=== PATIENT | female | born 1995 | race Caucasian/White ===

== ENCOUNTER 2018-03-04 13:49 | Inpatient (IN) ==
--- OUTSIDE RECORDS SUMMARY | 2018-03-04 16:57 | External Medical Summary | Continuity of Care Document ---
:1995 Author Organization [facility] Address [address] [place], [place] [id number] Phone Care Team Providers Name Role Phone Jose L Hardy MD, FAAFP Unavailable Unavailable Allergies, Adverse Reactions, Alerts Substance Reaction Severity Status No Known Drug Allergies Unknown Active Medications Medication Instructions Dosage Effective Dates Status Comments (start - stop) 28 mg take 1 tablet by Not Available - Active iron-800 mcg oral route every tablet day Problems Condition Effective Dates (start - stop) Clinical Status Encntr for suprvsn of normal first - preg, third trimester 34 weeks gestation of - Right upper quadrant pain Secondary amenorrhea Palpitations - Encntr for suprvsn of normal first - preg, second trimester 24 weeks gestation of - Right upper quadrant pain - Right upper quadrant pain Headache Syncope and collapse - 19 weeks gestation of - Decreased libido Encntr screen for infections w sexl - mode of transmiss Encounter for screening for oth - infec/parastc diseases Encntr for suprvsn of normal first - preg, first trimester Encounter for screening of - mother 9 weeks gestation of - Encntr for suprvsn of normal first - preg, second trimester 14 weeks gestation of - Encntr for suprvsn of normal first - preg, second trimester 17 weeks gestation of - Encntr for suprvsn of normal first - preg, second trimester 20 weeks gestation of - Encntr for suprvsn of normal first - preg, third trimester 32 weeks gestation of - Encntr for suprvsn of normal first - preg, third trimester 30 weeks gestation of - Encntr for suprvsn of normal first - preg, third trimester 28 weeks gestation of - Encntr for suprvsn of normal first - preg, third trimester Encounter For Screening For - Streptococcus B 36 weeks gestation of - Encntr for suprvsn of normal first - preg, third trimester 37 weeks gestation of - Encounter For Screening For - Malformations 20 weeks gestation of - Urinary Frequency - Active Dysuria - Active Abdominal Pain, RLQ - Active Pelvic Pain - Active Ovarian Cyst - Active Procedures Procedure Date OB Visit No Charge Results Test Name Date and Time Measure Units Reference Range Abnormal Flag Comments Unknown Advance Directives Directive Yes / No Effective Date File Name Unknown Encounters Encounter Practice Location Reason(s) Diagnoses Date Provider Care Team Description For Visit Members Mitchell Chiur for Chandra Referring In Womens suprvsn of normal 0-201 [place]. 700 Provider: Health PA, first preg, third 8 Medical [place] [address] [id number] weeks Center Chandra R, 1522, gestation of [place] 700 [place], 120, Medical [email or web address] [id number], ERAN, [facility] [place] 120, [place] [id number] [place], tel: , [place]. [place], [id number] tel: [phone]. [id number] tel:[phone] Mitchell Chiur for Ricardo-0 Chandra Referring In Womens suprvsn of normal 3-201 [place]. 700 Provider: Health SON, first preg, third 8 Medical [place] PO Box trimesterEncounte Center Chandra R, 1522, r For [place] Cha, Screening For 120, Medical [place], [facility] B36 [facility] [id number], weeks gestation [place], [place] 120, [place] of [id number] [place], tel: , [place]. [place], tel: [phone]. [id number] tel:[phone] Mitchell Vigil Encntr for Ricardo-2 Chandra Referring In Womens suprvsn of normal 0-201 [place]. 700 Provider: Health SON, first preg, third 8 Medical [place] [address] [id number] weeks Center Chandra R, 1522, gestation of [place], 120, Medical [place] [facility] [id number], [place], [place] 120, [place] [id number] [place], tel: , [place]. [place], tel: [phone]. [id number] tel:[phone] Mitchell Vigil Encntr for Ricardo-0 Chandra Referring In Womens suprvsn of normal 6-201 [place]. 700 Provider: Health SON, first preg, third 8 Medical [place] [address] [email or web address] weeks Center Chandra R, 1522, gestation of [place], 120, Medical [place] [facility] [id number], [place], [place] 120, [place] [id number] [place], tel: , [place], tel: [phone]. [id number] tel:[phone] Mitchell Vigil Encntr for May-2 Chandra Referring In Womens suprvsn of normal 3-201 [place]. 700 Provider: Health SON, first preg, third 8 Medical [place] PO Box [id number] weeks Center Chandra R, 1522, gestation of [place], 120, Medical [place] [facility] [id number], [place], [place] 120, [place] [id number] [place], tel: , [place]. [place], tel: [phone]. [id number] tel:[phone] Mitchell Vigil Encntr for May-0 Chandra Referring In Womens suprvsn of normal 9-201 [place]. 700 Provider: Health SON, first preg, third 8 Medical [place] PO Box [email or web address] weeks Center Chandra R, 1522, gestation of DrLevy [place], 120, Medical [place], [facility] [id number], [place], [place] 120, [place] [id number] [place], tel: , [place]. [place] tel: [phone]. [id number] tel:[phone] Mitchell Vigil PalpitationsEncnt Apr-1 Chandra Referring In Womens r for suprvsn of 1-201 [place]. 700 Provider: Elvis CLINE, normal first 8 Medical [place] PO Box preg, second Center Chandra R, 1522, [email or web address] weeks [place], gestation of 120, Medical [place], [place], [place] [id number], [place], [place] 120, [place] [id number] [place], tel: , [place]. [place], tel: [phone]. [id number] tel:[phone] Mitchell Vigil Encntr for Mar-1 Chandra Referring In Womens suprvsn of normal 4-201 [place]. 700 Provider: Elvis CLINE, first preg, 8 Medical [place] PO Box second Center Chandra R, 1522, [email or web address] weeks [place], gestation of 120, Medical [place], [place], [place] [id number], [place], [place] 120, [place] [id number] [place], tel: , [place]. [place], tel: [phone]. [id number] tel:[phone] Mitchell Vigil Encounter For Mar-1 Chandra Referring In Womens Ultrasound 4-201 [place]. 700 Provider: Elvis CLINE, Screening For 8 Medical [place] [address] [id number] Center Chandra R, 1522, weeks gestation [place] Cha, of 120, Medical [place], [place], [place] [id number], [place], [place] 120, [place] [id number] [place], tel: , [place]. [place] tel: [phone]. [id number] tel:[phone] Mitchell Vigil Syncope and Mar-0 Chandra Referring In Womens [id number] weeks 6-201 [place]. 700 Provider: Health [place], gestation of 8 [facility] Center Chandar R, 1522, [place], 120, Medical [place], [facility] [id number], [place], [place] 120, [place] [id number] [place], tel: , [place]. [place] tel: [phone]. [id number] tel:[phone] Mitchell Vigil Encntr for Feb-2 Chandra Referring In Womens suprvsn of normal 3-201 [place]. 700 Provider: Health [place], first preg, 8 [facility] second Center Chandra R, 1522, [email or web address] weeks [place], gestation of 120, Medical [place], [facility] [id number], [place], [place], [place] [id number] [place], tel: , [place]. [place] tel: [phone]. [id number] tel:[phone] Mitchell Vigil Encntr for Feb-0 Chandra Referring In Womens suprvsn of normal 2-201 [place]. 700 Provider: Health [place], first preg, 8 [facility] second Center Chandra R, 1522, [id number] weeks [place], gestation of 120, Medical [place], [facility] [id number], [place], [place], [place] [id number] [place], tel: , [place]. [place] tel: [phone]. [id number] tel:[phone] Mitchell Vigil Encntr screen for Lefty-0 Chandra Referring In Womens infections w sexl 4-201 [place]. 700 Provider: Health [place], mode of 8 [facility] transmissEncounte [place] Chandra R, 1522, r for screening [place], for oth 120, Medical [place], [facility]astc [facility] [id number], diseasesEncntr [place], [place] 120, [place] for suprvsn of [id number] [place], tel: normal first , [place]. [place] preg, first tel: [phone]. trimesterEncounte [id number] tel: r for [phone] screening of mother9 weeks gestation of Associates [place] Secondary Dec-1 Chandra Referring In Womens amenorrhea 5-201 [place]. 700 Provider: Elvis CLINE, 7 [facility] Chandra Cintron, 1522, , [place] [address], 120, Medical [place] [facility] [id number], [place], [facility], [place] 120, [place] [id number] [place], tel: , [place]. [place], tel:[phone]. [id number] tel:[phone] Associates [place] Right upper Nov-2 Chandra Referring In Womens quadrant pain 7-201 [place]. 700 Provider: Elvis CLINE, 7 [facility] Chandra Cintron, 1522, , [place] [address], 120, Medical [place] [facility] [id number], [place], [facility], [place] 120, [place] [id number] [place], tel: , [place]. [place], tel:[phone]. [id number] tel:[phone] [facility] [place] Right upper Nov-2 Chandra In Womens quadrant pain 3-201 [place]. 700 Elvis CLINE, 7 [facility] 1522, [place], [facility], [place] [id number], [place], [id number] tel: , [place]. tel: [phone] [facility] [place] Right upper Nov-2 Chandra Referring In Womens quadrant pain 2-201 [place]. 700 Provider: Elvis CLINE, 7 [facility] Chandra R, 1522, , [place] [address], 120, Medical [place] [facility] [id number], [place], [place] 120, [place] [id number] [place], tel: , [place]. [place], tel: [phone]. [id number] tel:[phone] [facility] Headache Apr-1 Chandra Referring In Womens 9-201 [place]. 700 Provider: Elvis CLINE, 6 [facility] Chandra Cintron, 1522, , [place] [address], 120, Medical [place] [facility] [id number], [place], [facility], [place] 120, [place] [id number] [place], tel: , [place]. [place], tel: [phone]. [id number] tel:[phone] [facility] Decreased libido Chandra Referring In Womens 9-201 [place]. 700 Provider: Health PA, 6 Medical [place] [address] [place] Chandra , 1522, , [place] [address] [place], [facility], [facility], [facility] [id number], [place], [facility], [place] 120, [place] [id number] [place], tel: , [place]. [place], tel: [phone]. [id number] tel:[phone] Mitchell Vigil Feb- Lisa In Womens 0-200 Katheryn. Health [place], 9 700 [address] Box [facility] [address], [place] [address] Marry, [facility], 120, [id number], Vigil, ERAN, tel: [phone] , . tel: [phone] Family History Family Member Diagnosis Age At Onset No family history of Diabetes No family history of Colon Cancer No family history of Breast Cancer No family history of Osteoporosis No family history of Cardiovascular Disease No family history of Thyroid Disorder Maternal Grandfather Hypertension No family history of Stroke No family history of Kidney Problems Maternal Grandmother Hypertension No family history of Lung Disease No family history of Epilepsy Immunizations Vaccine Date Status Comments Tdap completed Source: New Immunization Record Payers Payer name Insurance type Covered constitution party ID Authorization(s) [facility] [id number] [employer] CI [id number] [employer] CI [id number] Social History Type Description Quantity Date Captured Alcohol Use Details No Caffeine Use Details Unknown Tobacco Use Status Unknown Smoking Status Never smoker Vital Signs Date / Height Weight BMI Pulse Blood Temperature Respiratory Body Head BMI Time: Rate Pressure Rate Surface Circumference percentile Area 218.90 32.3 126/69 -2018 lbs 2 mm[Hg] 1:30 kg/m PM eter (2) Chief Complaint And Reason For Visit Unknown Chief Complaint And Reason For Visit Reason For Referral Reason For Referral Unknown Plan Of Care Date Type Action Status Appointment Niki Berman BOOKED Appointment Niki Berman BOOKED Future Order: Radiology Order Complete OB Ultrasound > 14 Weeks Ordered ([id number]) Date Type Problem Goal Intervention Status Start Date Unknown. History Of Present Illness Encounter Date Complaint History Of Present Illness This patient has no known history of present illness Functional Status Encounter Date Functional Assessment Cognitive Assessment Unknown Medications Administered Medication Instructions Dosage Effective Dates (start - stop) Status Comments Drug Treatment Unknown Instructions Date Instruction Additional Information HIV and other routine tests risk factors identified by history anticipated course of care nutrition and weight gain counseling, special diet toxoplasmosis precautions (cats / raw meat) sexual activity exercise indications for ultrasound influenza vaccine environmental / work hazards travel use of any medications (including supplements, vitamins, herbs, OTC drugs) domestic violence seat belt use childbirth classes / hospital facilities hospital registration genetic testing risks
--- OUTSIDE RECORDS SUMMARY | 2018-03-04 16:57 | External Medical Summary | Continuity of Care Document ---
:1995 Author Organization [facility] Address [address] [place], [place] [id number] Phone Care Team Providers Name Role Phone [...] Effective Dates (start - stop) Clinical Status Right upper quadrant pain Secondary amenorrhea Palpitations [...] second trimester 20 weeks gestation of - Encounter For Screening For - Malformations 20 weeks gestation of - Urinary Frequency - Active Dysuria - Active Abdominal Pain, RLQ - Active Pelvic Pain - Active Ovarian Cyst - Active Procedures Procedure Date Unknown Results Test Name Date and Time Measure Units Reference Range Abnormal Flag Comments Unknown Advance Directives Directive Yes / No Effective Date File Name Unknown Encounters Encounter Practice Location Reason(s) Diagnoses Date Provider Care Team Description For Visit Members Mitchell Vigil PalpitationsEncnt Apr-1 Chandra Referring In Womens r for suprvsn of 1-201 [place]. 700 Provider: Elvis CLINE, normal first 8 Medical [place] PO Box preg, second Center Chandra R, 1522, [email or web address] weeks [place], gestation of 120, Medical [place], [facility] [place], [facility] 120, [place] [id number] [place], tel:+ , [place]. [place], tel: [phone]. [id number] tel:[phone] Mitchell Vigil Apr-1 Chandra In Womens 0-201 [place]. 700 Elvis CLINE, 8 Medical PO Box Center 1522, [place], [facility], [place], [place], [id number], [place], [place] [id number] tel: , [place]. tel: [phone] Mitchell Vigil Encntr for Mar-1 Chandra Referring In Womens suprvsn of normal 4-201 [place]. 700 Provider: Elvis CLINE, first preg, 8 Medical [place] PO Box second Center Chandra R, 1522, [id number] weeks [place], gestation of 120, Medical [place], [place] Sieper [id number], [place], [facility] 120, [place] [id number] [place], tel:[phone] , . [place], tel: [phone]. [id number] tel:[phone] Mitchell Vigil Encounter For Mar-1 Chandra Referring In Womens Ultrasound 4-201 [place]. 700 Provider: Elvis CLINE, Screening For 8 Medical [place] [address] Box [id number] Center Chandra R, 1522, weeks gestation [place], of 120, Medical [facility] [id number], [place], [place] 120, [place] [id number] [place], tel: , [place]. [place], tel: [phone]. [id number] tel:[phone] Mitchell Vigil Syncope and Mar-0 Chandra Referring In Womens [id number] weeks 6-201 [place]. 700 Provider: Elvis CLINE, gestation of 8 Medical [place] PO Box Center Chandra R, 1522, [place], 120, Medical [place] [facility] [id number], [place], [place] 120, [place] [id number] [place], tel: , [place]. [place], tel: [phone]. [id number] tel:[phone] Mitchell Vigil Encntr for Feb-2 Chandra Referring In Womens suprvsn of normal 3-201 [place]. 700 Provider: Elvis CLINE, first preg, 8 Medical [place] PO Box second Center Chandra R, 1522, weeks [place], gestation of 120, Medical [place], [facility] [id number], [place], [place] 120, [place] [id number] [place], tel: , [place]. [place], tel: [phone]. [id number] tel:[phone] Mitchell Vigil Encntr for Feb-0 Chandra Referring In Womens suprvsn of normal 2-201 [place]. 700 Provider: Elvis CLINE, first preg, 8 Medical [facility] Box second Center Chandra R, 1522, [id number] weeks [place], gestation of 120, Medical [place], [facility] [id number], [place], [place] 120, [place] [id number] [place], tel: , [place]. [place], tel: [phone]. [id number] tel:[phone] Mitchell Vigil Encntr screen for Lefty-0 Chandra Referring In Womens infections w sexl 4-201 [place]. 700 Provider: Elvis CLINE, mode of 8 Medical [facility] Box transmissEncounte Center Chandra R, 1522, r for screening [place], for oth 120, Medical [place], [facility]c [facility] [id number], diseasesEncntr [place], [facility] 120, [place] for suprvsn of [id number] [place], tel: normal first , [place]. [place], preg, first tel: [phone]. trimesterEncounte [id number] tel: r for [phone] screening of mother9 weeks gestation of Associates [place] Secondary Chandra Referring In Womens amenorrhea 5-201 [place]. 700 Provider: Health SON, 7 [facility] Chandra Cintron, 1522, [place], 120, Medical [place] [facility] [id number], [place], [facility] 120, [place] [id number] [place], tel: , [place]. [place], tel: [phone]. [id number] tel:[phone] Mitchell Vigil Right upper Nov-2 Chandra Referring In Womens quadrant pain 7-201 [place]. 700 Provider: Health SON, 7 [facility] Chandra Cintron, 1522, [place], 120, Medical [place] [facility] [id number], [place], [facility] 120, [place] [id number] [place], tel: , [place]. [place], tel: [phone]. [id number] tel:[phone] Mitchell Vigil Right upper Nov-2 Chandra In Womens quadrant pain 3-201 [place]. 700 Elvis CLINE, 7 [facility] 1522, [place], 120, [place] [id number], [place], [place] [id number] tel: , [place]. tel: [phone] Mitchell Vigil Right upper Nov-2 Chandra Referring In Womens quadrant pain 2-201 [place]. 700 Provider: Health SON, 7 [facility] Chandra R, 1522, [place], 120, Medical [place] [facility] [id number], [place], [place] 120, [place] [id number] [place], tel: , [place]. [place], tel: [phone]. [id number] tel:[phone] Mitchell Vigil Headache Nov- Chandra Referring In Womens 9-201 [place]. 700 Provider: Health PA, 6 [facility] Box Center Candy Guevara, , [facility] 700 [place], 120, Medical ERAN [facility] [id number], [place], [facility] 120, [id number] [place], tel: , . [place], tel: [phone]. [id number] tel:[phone] Mitchell Vigil Decreased libido Feb-0 Chandra Referring In Womens 9-201 [place]. 700 Provider: Health SON, 6 [facility] Cristobal Guevara2Dr, [facility] 700 [place], 120, Medical [facility] [id number], [place], [facility] 120, [id number] [place], tel: , . [place], tel: [phone]. [id number] tel:[phone] Mitchell Vigil Ricardo-2 Lisa In Womens 0-200 Katheryn. Health SON, 9 700 [facility] 1522, [address], [facility], [facility], [id number], [facility] ERAN, tel: [phone] , . tel: [phone] Family History Family Member Diagnosis Age At [...] of Epilepsy Immunizations Vaccine Date Status Comments Unknown Payers Payer name Insurance type Covered alliance party ID Authorization(s) [address] [id number] Social History Type Description Quantity Date Captured Unknown Vital Signs Date / Height Weight BMI Pulse Blood Temperature Respiratory Body Head BMI Time: Rate Pressure Rate Surface Circumference percentile Area Unknown Chief Complaint And Reason For Visit Unknown Chief Complaint And Reason For Visit Reason For Referral Reason For Referral Unknown Plan Of Care Date Type Action Status Appointment Niki Berman BOOKED Future Order: Radiology Order Complete OB Ultrasound > 14 Weeks Ordered ([id number]) Date Type Problem Goal Intervention Status Start [...]
--- OUTSIDE RECORDS SUMMARY | 2018-03-04 16:57 | External Medical Summary | Continuity of Care Document ---
:1995 Author Organization [facility] [facility] Address [address] [place], [place] [id number] Phone Care Team Providers Name Role Phone [...] Streptococcus B 36 weeks gestation of - Right upper quadrant [...] of normal first - preg, third trimester 38 weeks gestation of - Encntr for suprvsn of normal first - preg, third trimester 30 weeks gestation of - Encntr for suprvsn of normal first - preg, third trimester 28 weeks gestation of - Encntr for suprvsn of normal first - preg, third trimester 34 weeks gestation of - Encntr for suprvsn of normal first - preg, third trimester 37 weeks gestation of - Encounter For Screening For - Malformations 20 weeks gestation of - Urinary Frequency - Active Dysuria - Active Abdominal Pain, RLQ - Active Pelvic Pain - Active Ovarian Cyst - Active Procedures Procedure Date OB Visit No Charge Cult, pathgnc orgnsm, screen Results Test Name Date and Time Measure Units Reference Range Abnormal Flag Comments Panel Description: Strep Gp B Culture Strep Gp B Negative Negative Centers for Disease Control Culture 10:40:00 and Prevention (CDC) and [place] Congressof Obstetricians and Gynecologists (ACOG) guidelines for prevention ofperinatal group B streptococcal (GBS) disease specify co-collection ofa vaginal and rectal swab specimen to maximize sensitivity of GBSdetection. Per the CDC and ACOG, swabbing both the lower vagina andrectum substantially increases the yield of detection compared withsampling the vagina alone. .Penicillin G, ampicillin, or cefazolin are indicated for intrapartumprophylaxis of GBS colonization. Reflex susceptibilitytesting should be performed prior to use of clindamycin only on GBSisolates from penicillin-allergic women who are considered a high riskfor anaphylaxis. Treatment with vancomycin without additional testingis warranted if resistance to clindamycin is noted. Advance Directives Directive Yes / No Effective Date File Name Unknown Encounters Encounter Practice Location Reason(s) Diagnoses Date Provider Care Team Description For Visit Members Mitchell Vigil Encntr for Ricardo-1 Chandra Referring In Womens suprvsn of normal 7-201 [place]. 700 Provider: Health [place], first preg, third 8 Medical [place] [address] [email or web address] weeks [place] Chandra R, 1522, gestation of [place], 120, [facility] [id number], [place], [facility] 120, [place] [id number] [place], tel:+ , [place]. [place], tel: [phone]. [id number] tel:[phone] Mitchell Vigil Encntr for Ricardo-1 Chandra Referring In Womens suprn of normal 0-201 [place]. 700 Provider: Health [place], first preg, third 8 Medical [place] [address] [email or web address] weeks Center Chandra R, 1522, gestation of [place], 120, [facility] [place] [facility] [id number], [place], [facility] 120, [place] [id number] [place], tel: , [place]. [place], tel: [phone]. [id number] tel:[phone] Mitchell Vigil Encntr for Ricardo-0 Chandra Referring In Womens suprvsn of normal 3-201 [place]. 700 Provider: Health OR, first preg, third 8 Medical [place] PO Box trimesterEncounte Center Chandra R, 1522, r For [place], Screening For 120, Medical [place], Streptococcus B36 [place] [id number], weeks gestation ERAN, [facility] 120, [place] of [id number] [place], tel: , [place]. [place], tel: [phone]. [id number] tel:[phone] Mitchell Vigil Encntr for Ricardo-2 Chandra Referring In Womens suprvsn of normal 0-201 [place]. 700 Provider: Health [place], first preg, third 8 Medical [place] PO Box weeks Center Chandra Cintron, 1522, gestation of [place], 120, Medical [place] [facility] [id number], [place], [facility] 120, [place] [id number] [place], tel:+ , [place]. [place], tel: [phone]. [id number] tel:[phone] Mitchell Vigil Encntr for Ricardo-0 Chandra Referring In Womens suprvsn of normal 6-201 [place]. 700 Provider: Health [place], first preg, third 8 Medical [place] PO Box [email or web address] weeks Center Chandra Cintron, 1522, gestation of [place], 120, Medical [place] [facility] [id number], [place], [facility] 120, [place] [id number] [place], tel:+ , [place]. [place], tel: [phone]. [id number] tel:[phone] Mitchell Vigil Encntr for May-2 Chandra Referring In Womens suprvsn of normal 3-201 [place]. 700 Provider: Health SON, first preg, third 8 Medical [place] PO Box [email or web address] weeks Center Chandra Cintron, 1522, gestation of [place], 120, Medical [place] [facility] [id number], [place], [facility] 120, [place] [id number] [place], tel:+ , [place]. [place], tel: [phone]. [id number] tel:[phone] Mitchell Vigil Encntr for May-0 Chandra Referring In Womens suprvsn of normal 9-201 [place]. 700 Provider: Health [place], first preg, third 8 Medical [place] PO Box [email or web address] weeks Center Chandra Cintron, 1522, gestation of [place], 120, Medical [place] [facility] [id number], [place], [facility] 120, [place] [id number] [place], tel:+ , [place]. [place] tel: [phone]. [id number] tel:[phone] Mitchell Vigil PalpitationsEncnt Apr-1 Chandra Referring In Womens r for suprvsn of 1-201 [place]. 700 Provider: Health SON, normal first 8 Medical [place] PO Box preg, second Center Chandra R, 1522, weeks [place], gestation of 120, Medical [place], Vigil, [place] [id number], [place], [place] 120, [place] [id number] [place], tel:+ , [place]. [place], tel: [phone]. [id number] tel:[phone] Mitchell Vigil Encntr for Mar-1 Chandra Referring In Womens suprvsn of normal 4-201 [place]. 700 Provider: Health SON, first preg, 8 Medical [place] PO Box second Center Chandra R, 1522, weeks [place], gestation of 120, Medical [place], [place], [place] [id number], [place], [place] 120, [place] [id number] [place], tel: , [place]. [place], tel: [phone]. [id number] tel:[phone] Mitchell Vigil Encounter For Mar-1 Chandra Referring In Womens Ultrasound 4-201 [place]. 700 Provider: Health SON, Screening For 8 Medical [place] PO Box [id number] Center Chandra R, 1522, weeks gestation [place], of 120, Medical [place] [facility] [id number], [place], [place] 120, [place] [id number] [place], tel:+ , [place]. [place] tel: [phone]. [id number] tel:[phone] Mitchell Vigil Syncope and Mar-0 Chandra Referring In Womens [email or web address] weeks 6-201 [place]. 700 Provider: Elvis CLINE, gestation of 8 Medical [place] PO Box Center Chandra R, 1522, [place], 120, Medical [place] BARILLAS, [place] [id number], [place], [place] 120, [place] [id number] [place], tel: , [place]. [place] tel: [phone]. [id number] tel:[phone] Mitchell Vigil Encntr for Feb-2 Chandra Referring In Womens suprvsn of normal 3-201 [place]. 700 Provider: Elvis SON, first preg, 8 Medical [facility] Center Chandra R, 1522, [email or web address] weeks [place], gestation of 120, Medical [place], [place], [place] [id number], [place], [place] 120, [place] [id number] [place], tel:+ , [place]. [place], tel: [phone]. [id number] tel:[phone] Mitchell Vigil Encntr for Feb-0 Chandra Referring In Womens suprvsn of normal 2-201 [place]. 700 Provider: Health SON, first preg, 8 [facility] Center Chandra R, 1522, [email or web address] weeks [place], gestation of 120, Medical [place], [facility] [id number], [place], [place] 120, [place] [id number] [place], tel:+ , [place]. [place], tel: [phone]. [id number] tel:[phone] Mitchell Vigil Encntr screen for Lefty-0 Chandra Referring In Womens infections w sexl 4-201 [place]. 700 Provider: Elvis CLINE, mode of 8 [facility] transmissEncounte [place] Chandra R, 1522, r for screening [place], for oth 120, Medical [place], [facility] [id number], diseasesEncntr [place], [place] 120, [place] for suprvsn of [id number] [place], tel: normal first , [place]. [place], preg, first tel: [phone]. trimesterEncounte [id number] tel:[phone] r for [id number] screening of mother9 weeks gestation of Mitchell Vigil Secondary Dec-1 Chandra Referring In Womens amenorrhea 5-201 [place]. 700 Provider: Elvis CLINE, 7 [facility] Chandra R, 1522, [place], 120, Medical [place], [facility] [id number], [place], [place] 120, [place] [id number] [place], tel: , [place]. [place] tel: [phone]. [id number] tel:[phone] Mitchell Vigil Right upper Nov-2 Chandra Referring In Womens quadrant pain 7- [place]. 700 Provider: Health SON, 7 [facility] Chandra Cintron 1522, , [place], 120, Medical [place] [facility] [id number], [place], [place] 120, [place] [id number] [place], tel: , [place]. [place] tel: [phone]. [id number] tel:[phone] Mitchell Vigil Right upper Nov-2 Chandra In Womens quadrant pain 3-201 [place]. 700 Health SON, 7 [facility] 152Robert, , [place], 120, [place] BARILLAS, [id number], [place], [id number] tel: , [place]. tel: [phone] Mitchell Vigil Right upper Nov-2 Chandra Referring In Womens quadrant pain 2-201 [place]. 700 Provider: Health SON, 7 [facility] Chandra Cintron 1522, , [place] Pat[place], 120, Medical [place] [facility] [id number], [place], [facility] 120, [place] [id number] [place], tel: , [place]. [place] tel: [phone]. [id number] tel:[phone] Mitchell Vigil Headache Apr-1 Chandra Referring In Womens [place]. 700 Provider: Health SON, 6 [facility] [address], [place], 120, Medical [place] [facility] [id number], [place], [facility] 120, [place] [id number] [place], tel: , [place]. [place], tel: [phone]. [id number] tel:[phone] Mitchell Vigil Decreased libido Feb-0 Chandra Referring In Women [place]. 700 Provider: Health SON, 6 [facility] Chandra Cintron, 1522, , [place] Pat[place], 120, Medical [place] [facility] [id number], [place], [place] 120, [place] [id number] [place], tel: , [place]. [place] tel:[phone]. [id number] tel:[phone] Associates [place] Lisa In Womens 0-200 Katheryn. [facility], 9 700 PO [facility] [address], [address] Mar[place], [facility] [place], 120, [id number], [place], [place], [phone] , . tel: [phone] Family History Family Member Diagnosis Age At [...] Insurance type Covered constitution party ID Authorization(s) [employer] CI [id number] BCBS [facility] [id number] [employer] CI [id number] Social History Type Description Quantity Date Captured Alcohol Use Details No Caffeine Use Details Unknown Tobacco Use Status Unknown Smoking Status Never smoker Vital Signs Date / Height Weight BMI Pulse Blood Temperature Respiratory Body Head BMI Time: Rate Pressure Rate Surface Circumference percentile Area 224.20 33.1 131/ lbs 0 mm[Hg] 10:28 kg/m AM eter (2) Chief Complaint And Reason For Visit Unknown Chief Complaint And Reason For Visit Reason For Referral Reason For Referral Unknown Plan Of Care Date Type Action Status Appointment Niki Berman BOOKED Future Order: Radiology Order Complete OB Ultrasound > 14 Weeks Ordered ([id number]) Date Type Problem Goal Intervention Status Start [...]
--- OUTSIDE RECORDS SUMMARY | 2018-03-04 16:57 | External Medical Summary | Continuity of Care Document ---
:1995 Author Organization [facility] Address [address] [place], [place] [id number] Phone Care Team Providers Name Role Phone [...] Effective Dates (start - stop) Clinical Status Secondary amenorrhea Right upper quadrant pain Right upper quadrant pain - Right upper quadrant pain Headache Decreased libido Encntr for suprvsn of normal first - preg, first trimester 9 weeks gestation of - Urinary Frequency - Active Dysuria - Active Abdominal Pain, RLQ - Active Pelvic Pain - Active Ovarian Cyst - Active Procedures Procedure Date No Charge Office Visit Results Test Name Date and Time Measure Units Reference Range Abnormal Flag Comments Unknown Advance Directives Directive Yes / No Effective Date File Name Unknown Encounters Encounter Practice Location Reason(s) Diagnoses Date Provider Care Team Description For Visit Members [facility] [place] Encntr for Chandra Referring In [facility] suprvsn of [place]. 700 Provider: Elvis CLINE, brian first Medical [place] [address], preg, first Center [place], [place], trimester9 [place] 120, 700 Medical [id number], weeks [facility] [place] gestation of [place], [place] 120, tel:[phone], [place], [address] [place]. [id number]. tel:316 tel:[phone] Mitchell Vigil Secondary Dec-15 Chandra Referring In Womens amenorrhea -2017 [place]. 700 Provider: Elvis CLINE Medical [place] [address], [place] Chandra Cha [place], [place] 120, 700 Medical [id number], [facility] [place], [place] 120, tel:[phone], [place], [address] [place]. [id number]. tel:316 tel:[phone] Mitchell Vigil Right upper Jun-27 Chandra Referring In Womens quadrant -2017 [place]. 700 Provider: Elvis CLINE pain Medical [place] [address], [place] Chandra Cha [place], [place] 120, 700 Medical [id number], [facility] [place], [place] 120, tel:[phone], [place], [address] [place]. [id number]. tel: tel:[phone] Mitchell Vigil Right upper Nov-23 Chandra In Womens quadrant -2017 [place]. 700 Elvis CLINE pain Medical [address], [place], [place] 120, [id number], [place] ERAN Vigil, tel:[phone] [phone] [place]. tel:[phone] Mitchell Vigil Right upper Jun-22 Chandra Referring In Womens quadrant -2017 [place]. 700 Provider: Elvis CLINE pain Medical [place] [address], [place] Chandra Cha [place], [place] 120, 700 Medical [id number], [place], [place] 120, tel:[phone], ERAN Vigil, [address] [place]. [id number]. tel:316 tel:[phone] Mitchell Vigil Headache Apr-19 Chandra Referring In Womens -2016 [place]. 700 Provider: Elvis CLINE Medical [place] [address], [place] Chandra Cha [place], [place] 120, 700 Medical [id number], [address] [place], [place] 120, tel: [phone], ERAN Vigil, [address] [place]. [id number]. tel: tel: [phone] Associates [place] Sepulveda Chandra Referring In Womens -2015 [place]. 700 Provider: [facility] [place] [address], [place] Chandra Cha, [place], [place] 120, 700 [facility] [id number], [place] [facility], Levy 120, tel: [phone], ERAN Vigil, [address] [place]. [id number]. tel: tel: [phone] Mitchell Vigil Lisa In Women -2008 [place]. Health [place], 700 [address], [place], [place] , [id number], [place] 120, [place], tel: [place], [id number], . tel:[phone] Family History Family Member Diagnosis Age At [...] Unknown Payers Payer name Insurance type Covered libertarian ID Authorization(s) [facility] [address] [id number] Social History Type Description Quantity Date Captured Alcohol Use Details Unknown Caffeine Use Details Unknown Tobacco Use Status Unknown Smoking Status Never smoker Vital Signs Date / Height Weight BMI Pulse Blood Temperature Respiratory Body Head BMI Time: Rate Pressure Rate Surface Circumference percentile Area 191.00 95 138/82 -2017 lbs /min mm[Hg] 3:15 PM Chief Complaint And Reason For Visit Unknown Chief Complaint And Reason For Visit Reason For Referral Reason For Referral Unknown Plan Of Care Date Type Action Status Appointment Niki Berman BOOKED Future Order: Lab Order Pap Smear With HPV Reflex If ASCUS Ordered ([id number]), Collected on: Date Type Problem Goal Intervention Status Start [...]
--- OUTSIDE RECORDS SUMMARY | 2018-03-04 16:57 | External Medical Summary | Continuity of Care Document ---
:1995 Author Organization [facility] [employer] [facility] Address [address] [place], [place] [phone] Phone Care Team Providers Name Role Phone [...] stop) Clinical Status Right upper quadrant pain Right upper quadrant pain - Right upper quadrant pain Headache Decreased libido Urinary Frequency - Active Dysuria - Active Abdominal Pain, RLQ - Active Pelvic Pain - Active Ovarian Cyst - Active Procedures Procedure Date Office/outpatient visit,est, low HCG, Quantitative Venpnctr fngr/heel/ear stick routne Results Test Name Date and Time Measure Units Reference Range Abnormal Flag Comments Panel Description: Choriogonadotropin.beta subunit [Units/volume] in Serum or Plasma HCG, TOTAL, QN 16:09:00 602 mIU/mL H Reference RangeNon or premenopausal <5Postmenopausal <10 Values from different assay methods may vary.The use of this assay to monitor or to diagnose patients with cancer or any condition unrelatedto has not been cleared or approved bythe FDA or the clinical resource manager of the assay.REPORT COMMENT:FASTING:NOTest performed at [facility] [id number] [place] [address]Qecdypbw: ROCKY KATE DO,MPH Advance Directives Directive Yes / No Effective Date File Name Unknown Encounters Encounter Practice Location Reason(s) Diagnoses Date Provider Care Team Description For Visit Members [facility] [place] Right upper [address] 700 Provider: KEZIA CLINE Box pain Medical [place] 1522, [place] Chandra Cha [place], [place], 700 Medical , [place] tel:[phone] [place], [place] 120, 6790 [id number], [place], [place], [place]. [id number]. tel: tel: [phone] [facility] [address] 700 SON PO Box pain [place] [id number], [place] , [place], [place] 120, [id number], [place], tel:219 [place], 6790 [id number], . tel:[phone] Office/outpati [facility] [place]. 700 Provider: KEZIA Sharma Box pain Medical [place] 1522, [place] Chandra Cha [place], [place] 120, 700 Medical [id number], [place] tel:[phone] [place], [place] 120, 6790 [id number], [place], [place], . [id number]. tel: tel: [phone] [facility] [place] [address] [place]. 700 Provider: KEZIA CLINE Box Medical [place] 1522, [place] Chandra [place], [place] 120, 700 Medical [id number], [place] tel:[phone] [place], [place] 120, 6790 [id number], [place], [place], . [id number]. tel:316 tel:[phone] [facility] -2015 [place]. 700 Provider: SON PO Box Medical [place] [address], [place]andra Cha, [place], [place] 120, 700 Medical [id number], [facility] tel:219 [place], [facility] 120, 6790 [id number], [place], [place], . [id number]. tel: tel: [phone] [facility] [place] [facility] -2009 [place]. [place], [address] 1522, [facility] , [id number], [place] 120, tel: [address], [id number], . tel:[phone] Family History Family Member Diagnosis Age At [...] Unknown Payers Payer name Insurance type Covered constitution party ID Authorization(s) [facility] [id number] Social History Type Description Quantity Date Captured Alcohol Use Details No Caffeine Use Details Unknown Tobacco Use Status Never smoked tobacco Smoking Status Never smoker Non-Smoking Tobacco Use : No Details Available : No Details Available Details Vital Signs Date / Height Weight BMI Pulse Blood Temperature Respiratory Body Head BMI Time: Rate Pressure Rate Surface Circumference percentile Area 188.70 83 131/82 2017 lbs /min mm[Hg] 3:39 PM Chief Complaint And Reason For Visit Unknown Chief Complaint And Reason For Visit Reason For Referral Reason For Referral Unknown Plan Of Care Date Type Action Status Appointment Niki Berman BOOKED Date Type Problem Goal Intervention Status Start Date Unknown. History Of Present Illness Encounter Date Complaint History Of Present Illness This patient has no known history of present illness Functional Status Encounter Date Functional Assessment Cognitive Assessment Unknown Medications Administered Medication Instructions Dosage Effective Dates (start - stop) Status Comments Drug Treatment Unknown Instructions Date Instruction Additional Information Unknown
--- OUTSIDE RECORDS SUMMARY | 2018-03-04 16:57 | External Medical Summary | Continuity of Care Document ---
:1994 Author Organization [facility] Address [address] [place], [place] [id number] Phone Care Team Providers Name Role Phone [...] second trimester 14 weeks gestation of - Right upper quadrant pain Secondary amenorrhea Right upper quadrant pain - Right upper quadrant pain Headache Decreased libido Encntr screen for infections w sexl - mode of transmiss Encounter for screening for oth - infec/parastc diseases Encntr for suprvsn of normal first - preg, first trimester Encounter for screening of - mother 9 weeks gestation of - Urinary Frequency [...] For Visit Members [facility] [place] Encntr for suprvsn Feb-0 Chandra Referring In Womens of normal first 2-201 [place]. 700 Provider: Health SON, preg, second 8 Medical [facility] Box [email or web address] weeks Center Chandra Cintron, 1522, gestation of [place], 120, Medical [place] BARILLAS Casar [id number], [place], [place] 120, [place] [id number] [place], tel: , [place]. [place], tel:[phone]. [id number] tel:[phone] Mitchell Vigil Encntr screen for Lefty-0 Chandra Referring In Womens infections w sexl 4-201 [place]. 700 Provider: Elvis CLINE, mode [facility] 8 [facility] Chandra Cintron, 1522, for screening for [place], oth infec/parastc 120, Medical [place], diseasesEncntr for Mus[place] Casar [id number], suprvsn of normal [place], [place] 120, [place] first preg, first [id number] Musa, tel: trimesterEncount , . [place], for tel:[phone]. screening of [id number] tel: mother9 weeks [phone] gestation of Mitchell Vigil Secondary Dec- Chandra Referring In Womens amenorrhea 5-201 [place]. 700 Provider: Elvis CLINE, 7 [facility] Box Casar Chandra Cintron, 1522, [place], 120, Medical [facility] [id number], [place], [place], [place] [id number] [place], tel: , [place]. [place], tel: [phone]. [id number] tel:[phone] Mitchell Vigil Right upper Nov-2 Chandra Referring In Womens quadrant pain 7- [place]. 700 Provider: Elvis CLINE, 7 [facility] Box Casar Chandra Cintron, 1522, [place], 120, Medical [place] BARILLAS Casar [id number], [place], [place] 120, [place] [id number] Mus[place], tel: , . [place], tel:[phone]. [phone] tel:[phone] Associates [place] Right upper Nov-2 Chandra In Womens quadrant pain 3-201 [place]. 700 Health SON, 7 [facility] Candy, , [facility] Marry, 120, [place]Musa, [id number], [place], [id number] tel: , [place]. tel: [phone] Associates [facility]sa Right upper Nov-2 Chandra Referring In Womens quadrant pain 2-201 [place]. 700 Provider: Health SON, 7 [facility] Chandra Cintron 152Robert, , [facility] Patito Tuttle, 120, Medical [place] [id number], [place], [facility] 120, [place] [id number] [place], tel: , [place]. [place], tel: [phone]. [id number] tel:[phone] Associates [place] Headache Apr-1 Chandra Referring In Womens 9-201 [place]. 700 Provider: Health SON, 6 [facility] [address], [place] [address] [place], 120, Medical [place] [id number], [place], [facility] 120, [place] [id number] [place], tel: , [place]. [place], tel: [phone]. [id number] tel:[phone] Associates [place] Decreased libido Feb-0 Chandra Referring In Womens 9-201 [place]. 700 Provider: Health SON, 6 [facility] Chandra Cintron [address]Dr, [place] [address] [place], 120, Medical [facility] [id number], [place], [facility] 120, [place] [id number] [place], tel: , [place]. [place], tel: [phone]. [id number] tel:[phone] Mitchell Vigil Ricardo-2 Lisa In Womens 0-200 Katheryn. Health SON, [address] [place] [address] 1522, [address], [facility] [place], 120, [id number], Vigil, ERAN, tel: [phone] , [place]. tel: [phone] Family History Family Member Diagnosis Age At [...] Insurance type Covered constitution party ID Authorization(s) [facility] ERAN [id number] Social History Type Description Quantity Date Captured Alcohol Use Details No Caffeine Use Details Unknown Tobacco Use Status Unknown Smoking Status Never smoker Vital Signs Date / Height Weight BMI Pulse Blood Temperature Respiratory Body Head BMI Time: Rate Pressure Rate Surface Circumference percentile Area 192.60 28.4 / lbs 4 mm[Hg] 3:21 kg/m PM eter (2) Chief Complaint And [...]
--- OUTSIDE RECORDS SUMMARY | 2018-03-04 16:57 | External Medical Summary | Continuity of Care Document ---
:1994 Author Organization [facility] Address [address] [place], [place] [phone] Phone Care Team Providers Name Role Phone [...] third trimester 32 weeks gestation of - Right upper quadrant [...] third trimester 34 weeks gestation of - Encounter For Screening [...] For Visit Members Mitchell Vigil Encntr for Ricardo-2 Chandra Referring In Womens suprvsn of normal 0-201 [place]. 700 Provider: Health SON, first preg, third 8 Medical [place] [address] [email or web address] weeks [place] Chandra R, 1522, gestation of [place], [facility] 120, [facility] [id number], [place], [facility] 120, [id number] Musa, tel: , [facility] ERAN, tel: [phone]. [id number] tel:[phone] Mitchell Vigil Encntr for Ricardo-0 Chandra Referring In Womens suprvsn of normal 6-201 [place]. 700 Provider: Health [place], first preg, third 8 Medical [place] [address] [id number] weeks [place] Chandra R, 1522, gestation of [place] Ken[place], 120, Medical [facility] [id number], [place], [facility] 120, [place] [id number] Musa, tel: , [facility] tel: [phone]. [id number] tel:[phone] Mitchell Vigil Encntr for May-2 Chandra Referring In Womens suprvsn of normal 3-201 [place]. 700 Provider: Health SON, first preg, third 8 Medical [place] [address] [email or web address] weeks Center Chandra R, 1522, gestation of [place] Ken[place], 120, Medical [facility] [id number], [place], [place] 120, [place] [id number] Mus[place], tel: , [place]. [place] tel: [phone]. [id number] tel:[phone] Mitchell Vigil Encntr for May-0 Chandra Referring In Womens suprvsn of normal 9-201 [place]. 700 Provider: Elvis CLINE, first preg, third 8 Medical [place] [address] [email or web address] weeks Center Chandra R, 1522, gestation of [place], 120, Medical [place] [id number], [place], [facility] 120, [place] [id number] Mus[place], tel: , [place]. [place] tel: [phone]. [id number] tel:[phone] Mitchell Vigil PalpitationsEncnt Apr-1 Chandra Referring In Womens r for suprvsn of 1-201 [place]. 700 Provider: Elvis CLINE, normal first 8 Medical [place] PO Box preg, second Center Chandra R, 1522, [email or web address] weeks [place], gestation of 120, Medical [place], [facility] [id number], [place], [place] 120, [place] [id number] Mus[place], tel: , [place]. [place] tel: [phone]. [id number] tel:[phone] Mitchell Vigil Encntr for Oct-1 Chandra Referring In Womens suprvsn of normal 4-201 [place]. 700 Provider: Elvis CLINE, first preg, 8 Medical [place] PO Box second Center Chandra R, 1522, weeks [place], gestation of 120, Medical [place], [place], [place] [id number], [place], [place] 120, [place] [id number] Mus[place], tel: , [place]. [place] tel: [phone]. [id number] tel:[phone] Mitchell Vigil Encounter For Mar-1 Chandra Referring In Womens Ultrasound 4-201 [place]. 700 Provider: Elvis CLINE, Screening For 8 Medical [place] PO Box [id number] Center Chandra R, 1522, weeks gestation [place], of 120, Medical [facility] [id number], [place], [place] 120, [place] [id number] [place], tel: , [place]. [place], tel: [phone]. [id number] tel:[phone] Associates [place] Syncope and Mar-0 Chandra Referring In Womens [email or web address] weeks 6-201 [place]. 700 Provider: Elvis CLINE, gestation of 8 Medical [place] PO Box Center Chandra R, 1522, [place], 120, Medical [facility] [id number], [place], [place] 120, [place] [id number] Mus[place], tel: , [place]. [place] tel: [phone]. [id number] tel:[phone] Mitchell Vigil Encntr for Feb-2 Chandra Referring In Womens suprvsn of normal 3-201 [place]. 700 Provider: Elvis CLINE, first preg, 8 Medical [place] PO Box second Center Chandra R, 1522, [id number] weeks [place], gestation of 120, Medical [place], [facility] , [place], [place] 120, [place] [id number] Mus[place], tel: , [place]. [place] tel: [phone]. [id number] tel:[phone] Mitchell Vigil Encntr for Feb-0 Chandra Referring In Womens suprvsn of normal 2-201 [place]. 700 Provider: Elvis CLINE, first preg, 8 Medical [facility] Box second Center Chandra R, 1522, [email or web address] weeks [place] Kenaitze, gestation of 120, Medical [place], [facility] [id number], [place], [place] 120, [place] [id number] Musa, tel: , . [place] tel: [phone]. [id number] tel:[phone] Mitchell Vigil Encntr screen for Lefty-0 Chandra Referring In Womens infections w sexl 4-201 [place]. 700 Provider: Elvis CLINE, mode of 8 [facility] Chandra R, 1522, r for screening [place], for oth 120, Medical [place], infec[facility]astc [facility] [id number], diseasesEncntr [place], [place] [address], [place] for suprvsn of [id number] Musa, tel: normal first , . [place], preg, first tel: [phone]. trimesterEncounte [id number] tel: r for [phone] screening of mother9 weeks gestation of Associates [place] Secondary Dec-1 Chandra Referring In Womens amenorrhea 5-201 [place]. 700 Provider: Elvis CLINE, 7 [facility] Chandra R, 1522, [place], 120, [facility] [id number], [place], [place] [address], [place] [id number] Musa, tel: , . [place], tel: [phone]. [id number] tel:[phone] Mitchell Vigil Right upper Nov-2 Chandra Referring In Womens quadrant pain 7-201 [place]. 700 Provider: Elvis CLINE, 7 [facility] Chandra R, 1522, [place], 120, [facility] Musa [facility] [id number], [place], [place] [address], [place] [id number] Musa, tel: , . [place], tel: [phone]. [id number] tel:[phone] Mitchell Vigil Right upper Nov-2 Chandra In Womens quadrant pain 3-201 [place]. 700 Elvis CLINE, 7 [facility] 1522, [place], [facility], [place] [id number], [place], [place] [id number] tel: , . tel: [phone] Mitchell Vigil Right upper Nov-2 Chandra Referring In Womens quadrant pain 2-201 [place]. 700 Provider: Health SON, 7 [facility] Candy Guevara, , [address], 120, Medical [place] [facility] [id number], [place], [facility] 120, [id number] Musa, tel: , . [place], tel: [phone]. [id number] tel:[phone] Mitchell Vigil Headache Apr- Chandra Referring In Womens 9-201 [place]. 700 Provider: Health SON, 6 [facility] Candy Guevara, , [facility] Patito RomeKenaitze, 120, Medical [place] [facility] [id number], [place], [place] [address], [id number] Musa, tel: , . [place], tel: [phone]. [id number] tel:[phone] Associates [place] Decreased libido Feb-0 Chandra Referring In Womens 9-201 [place]. 700 Provider: Health SON, 6 [facility] Cristobal Guevara2Dr, [place] [address] Ken[place], 120, Medical [place] [facility] [id number], [place], [facility] 120, [id number] Musa, tel: , . [place], tel: [phone]. [id number] tel:[phone] Mitchell Vigil Ricardo-2 Lisa In Womens 0-200 Katheryn. Health SON, [address] [place] [address] 1522, [address], [facility], 120, [id number], [facility] ERAN, tel: [phone] , [place]. tel: [phone] Family History Family Member Diagnosis Age At [...] Insurance type Covered constitution party ID Authorization(s) [facility] [address] [id number] Social History Type Description Quantity Date Captured Alcohol Use Details No Caffeine Use Details Unknown Tobacco Use Status Unknown Smoking Status Never smoker Vital Signs Date / Height Weight BMI Pulse Blood Temperature Respiratory Body Head BMI Time: Rate Pressure Rate Surface Circumference percentile Area 215.10 31.7 122/66 -2018 lbs 6 mm[Hg] 1:45 kg/m PM eter (2) 30.9 3 1:40 kg/m PM eter (2) Chief Complaint And Reason For Visit Unknown Chief Complaint And Reason For Visit Reason For Referral Reason For Referral Unknown Plan Of Care Date Type Action Status Appointment Niki Berman BOOKED Future Order: Radiology Order Complete OB Ultrasound > 14 Weeks Ordered ([id number]) Date Type Problem Goal Intervention Status Start [...]
[2018-03-04] MEDS ORDERED: TERBUTALINE 1 MG/ML VIAL SQ PRN (16:58)
[2018-03-04] MEDS ORDERED: DINOPROSTONE 10 MG VAGINAL INSERT VG ONE (16:58)
--- OUTSIDE RECORDS SUMMARY | 2018-03-04 16:58 | External Medical Summary | Continuity of Care Document ---
:1994 Author Organization [facility] Address [address] [place], [place] [phone] Phone Care Team Providers Name Role Phone [...] stop) Clinical Status Right upper quadrant pain - Right upper quadrant pain Secondary amenorrhea Right upper quadrant pain Headache Decreased libido Urinary Frequency - Active Dysuria - Active Abdominal Pain, RLQ - Active Pelvic Pain - Active Ovarian Cyst - Active Procedures Procedure Date HCG, Quantitative Venpnctr fngr/heel/ear stick routne Results Test Name Date and Time Measure Units Reference Range Abnormal Flag Comments Unknown Advance Directives Directive Yes / No Effective Date File Name Unknown Encounters Encounter Practice Location Reason(s) Diagnoses Date Provider Care Team Description For Visit Members Associates [place] Mcghee Chandra Referring In Women amenorrhea -2016 [place]. 700 Provider: Rashaun Pascual [address], [place], [place], [place], 700 Medical [id number], [place] [facility], [place] 120, tel:[phone], [place], [address] [place]. [id number]. tel:+316 tel:[phone] [phone] Mitchell Vigil Right upper Jun- Chandra Referring In Women quadrant -2017 [place]. 700 Provider: Elvis CLINE pain Medical [place] [address], Center Chandra [place], [place], 700 Medical [id number], [place], [place] 120, tel:[phone], [place], [address] [place]. [id number]. tel: tel: [phone] Mitchell Vigil Right upper Jun- Chandra In Womens quadrant -2017 [place]. 700 Elvis CLINE pain Medical [address], Center [place], [place] 120, [id number], Musa ERAN, tel:[phone] [place]. tel:[phone] Mitchell Vigil Right upper Jun- Chandra Referring In Women quadrant -2017 [place]. 700 Provider: arun Pascual Medical [place] [address], [place] Chandra Cha [place], [place] 120, 700 Medical [id number], [place], [place] 120, tel:[phone], [place], [address] [place]. [id number]. tel: tel: [phone] Mitchell Vigil Headache Nov- Chandra Referring In Womens -2016 [place]. 700 Provider: Elvis CLINE Medical [place] [address], [place] Chandra Cha [place], [place] 120, 700 Medical [id number], [address] [place], [place] 120, tel: [phone], [place], [address] [place]. [id number]. tel: tel:[phone] 982320 Mitchell Vigil Decreased Chandra Referring In Women libido -2016 [place]. 700 Provider: Elvis CLINE Medical [place] [address], Center Chandra [place], [place], 700 Medical [id number], [place], [place] 120, tel:[phone], [place], [address] [place]. [id number]. tel: tel: [phone] Associates [place] Lisa In Womens -2008 [place] [place], 700 [address], [place], [place], [place] , [id number], [place] 120, [place], tel:21 [place], [address] [id number], . tel:[phone] Family History Family Member Diagnosis Age At [...] Unknown Payers Payer name Insurance type Covered green party ID Authorization(s) [facility] [id number] Social History Type Description Quantity Date Captured [...]
--- OUTSIDE RECORDS SUMMARY | 2018-03-04 16:58 | External Medical Summary | Continuity of Care Document ---
:1994 Author Organization [facility] Address [address] [place], [place] [phone] Phone Care Team Providers Name Role Phone [...] upper quadrant pain Right upper quadrant pain Right upper quadrant pain - Headache Decreased libido Urinary Frequency - Active Dysuria - Active Abdominal Pain, RLQ - Active Pelvic Pain - Active Ovarian Cyst - Active Procedures Procedure Date Unknown Results Test Name Date and Time Measure Units Reference Range Abnormal Flag Comments Panel Description: Choriogonadotropin.beta subunit [Units/volume] in Serum or Plasma HCG, TOTAL, QN 14:17:00 3519 mIU/mL H Reference RangeNon or premenopausal <5Postmenopausal <10 Values from different assay methods may vary.The use of this assay to monitor or to diagnose patients with cancer or any condition unrelatedto has not been cleared or approved bythe FDA or the cheese cook of the assay.REPORT COMMENT:FASTING:NOTest performed at [facility] [id number] [place] [address]Umrqexjv: ROCKY KATE DO,MPH Advance Directives Directive Yes / No Effective Date File Name Unknown Encounters Encounter Practice Location Reason(s) Diagnoses Date Provider Care Team Description For Visit Members [facility] [place] Right upper [facility] -2016 [place]. 700 Provider: KEZIA CLINE Box pain [facility] 1522, [place]andra [place], [place] 120, 700 Medical [id number], [place] tel:+ [place], [place], 6790 [id number], [place], . [id number]. tel: tel: [phone] [facility] [place] Right upper [facility] -2017 [place]. 700 SON Box pain [facility] 1522, [place] , Mar[place], [place] 120, [id number], [place], tel:+ [place], 6790 [id number], [place]. tel:[phone] Associates In [facility] -2017 [place]. 700 Provider: KEZIA CLINE Box pain [facility] 1522, [place] Chandra [place], [place] 120, 700 Medical [id number], [place] tel:+ [place], [place], 6790 [id number], [place], [place]. [id number]. tel: tel: [phone] Associates In [facility] -2016 [place]. 700 Provider: KEZIA CLINE [facility] [place] 1522, [place], [place], 700 Medical [id number], [place] tel:+ [place], [place], 6790 [id number], [place], [place]. [id number]. tel: tel: [phone] Associates In [facility] -2016 [place]. 700 Provider: KEZIA CLINE [facility] 1522, [place], [place], 700 Medical [id number], [place] tel:[phone] [place], [place], 6790 [id number], [place], [place], [place]. [id number]. tel: tel: [phone] Associates In [place] [facility] -2008 Brenda. CLINE, [address] 2586, Medical [facility] , [id number], [place] 120, tel:[phone] [place] [address] [place] [address], [id number], . tel:[phone] Family History Family Member Diagnosis Age At [...] name Insurance type Covered libertarian ID Authorization(s) [facility] [id number] Social History Type Description Quantity Date Captured [...]
--- OUTSIDE RECORDS SUMMARY | 2018-03-04 16:58 | External Medical Summary | Continuity of Care Document ---
:1994 Author Organization [facility] Address [address] [place], [place] [id number] Phone Care Team Providers Name Role Phone [...] Status Right upper quadrant pain Secondary amenorrhea Right [...] For Visit Members Mitchell Vigil Encntr for Mar-1 Chandra Referring In Womens suprvsn of normal 4-201 [place]. 700 Provider: Elvis CLINE, first preg, 8 Medical [place] PO Box second Center Chandra R, 1522, [id number] weeks [place] Cha, gestation of 120, Medical [place], [facility] [id number], [place], [facility] 120, [place] [id number] [place], tel:+ , [place]. [place], tel: [phone]. [id number] tel:[phone] Mitchell Vigil Encounter For Mar-1 Chandra Referring In Womens Ultrasound - [place]. 700 Provider: Elvis CLINE, Screening For 8 Medical [facility] Box [id number] Center Chandra R, 1522, weeks gestation [place] Cha, of 120, Medical [facility] [id number], [place], [facility] 120, [place] [id number] [place], tel: , [place]. [place], tel: [phone]. [id number] tel:[phone] Mitchell Vigil Syncope and Mar-0 Chandra Referring In Womens [email or web address] weeks 6-201 [place]. 700 Provider: Elvis CLINE, gestation of 8 Medical [facility] Box Center Chandra R, 1522, [place] Cha, 120, Medical [facility] [id number], [place], [place] 120, [place] [id number] [place], tel: , [place]. [place], tel: [phone]. [id number] tel:[phone] Mitchell Vigil Mar-0 Chandra In Womens 6-201 [place]. 700 Elvis CLINE, 8 Medical PO Box Center 1522, [place] Cha, 120, [facility] [id number], [place], [id number] tel: , [place]. tel: [phone] Mitchell Vigil Encntr for Feb-2 Chandra Referring In Womens suprvsn of normal 3-201 [place]. 700 Provider: Elvis CLINE, first preg, 8 [facility] Chandra R, 1522, [id number] weeks [place] Cha, gestation of 120, Medical [place], [facility] [id number], [place], [facility] 120, [place] [id number] [place], tel: , [place]. [place], tel: [phone]. [id number] tel:[phone] Mitchell Vigil Encntr for Feb-0 Chandra Referring In Womens suprvsn of normal 2-201 [place]. 700 Provider: Elvis CLINE, first preg, 8 [facility] Chandra R, 1522, [id number] weeks [place] Cha, gestation of 120, Medical [place], [facility] [id number], [place], [facility] 120, [place] [id number] Mus[place], tel: , [place]. [place] tel: [phone]. [id number] tel:[phone] Mitchell Vigil Encntr screen for Lefty-0 Chandra Referring In Womens infections w sexl 4-201 [place]. 700 Provider: Elvis CLINE, mode of 8 [facility] Chandra R, 1522, r for screening [place] Cha, for oth 120, Medical ERAN, infec/parastc Mus[place] [id number], diseasesEncntr [place], [facility] 120, [place] for suprvsn of [id number] Mus[place], tel: normal first , [place]. [place] preg, first tel: [phone]. trimesterEncounte [id number] tel: r for [phone] screening of mother9 weeks gestation of Mitchell Vigil Secondary Dec- Chandra Referring In Womens amenorrhea 5-201 [place]. 700 Provider: Elvis CLINE, 7 [facility] Chandra Cintron, 1522, [place] Cha, 120, Medical [facility] [id number], [place], [facility] 120, [place] [id number] [place], tel: , [place]. [place], tel:[phone]. [id number] tel:[phone] Mitchell Vigil Right upper Nov-2 Chandra Referring In Womens quadrant pain 7-201 [place]. 700 Provider: Elvis CLINE, 7 [facility] Box [place] Chandra Cintron 1522, Dr [place], 120, Medical [place] [id number], [place], [facility] 120, [place] [id number] [place], tel:+ , [place]. [place], tel: [phone]. [id number] tel:[phone] Mitchell Vigil Right upper Nov-2 Chandra In Womens quadrant pain 3-201 [place]. 700 Health SON, 7 [facility] Box Center [address], Dr [facility] Marry, [facility], Musa BARILLAS, [id number], [place], [id number] tel: , [place]. tel: [phone] Mitchell Vigil Right upper Nov-2 Chandra Referring In Womens quadrant pain 2-201 [place]. 700 Provider: Elvis CLINE, 7 [facility] [address] [facility] [place], 120, Medical [place] [id number], [place], [facility] 120, [place] [id number] [place], tel: , . [place], tel: [phone]. [id number] tel:[phone] Mitchell Vigil Headache Apr-1 Chandra Referring In Womens 9- [place]. 700 Provider: Health SON, 6 [facility] Candy Guevara, Dr [place] Patito Tuttle, 120, Medical [place] [id number], [place], [facility] 120, [place] [id number] Musa, tel: , . [place] tel: [phone]. [id number] tel:[phone] Mitchell Vigil Decreased libido Feb-0 Chandra Referring In Womens 9- [place]. 700 Provider: Health SON, 6 [facility] Chandra Cintron, 1522, , Levy 700 Marry, 120, [facility], [facility] [id number], ERAN, [facility] 120, [id number] V[place], tel: , [place]. ERAN, [id number] tel: [phone]. [id number] tel:[phone] Mitchell Vigil Ricardo-2 Lisa In Womens 0-200 Katheryn. [facility], 9 700 [facility] 1522, [place] [address] Marry, [facility] [place], 120, [id number], [place], [facility], tel: [phone] , [place]. tel: [phone] Family History Family Member Diagnosis Age At [...] Insurance type Covered green party ID Authorization(s) [facility] [place] BL [id number] Social History Type Description Quantity Date Captured [...] Complete OB Ultrasound > 14 Weeks Ordered ([id number]) Date Type Problem Goal Intervention Status Start [...]
--- OUTSIDE RECORDS SUMMARY | 2018-03-04 16:58 | External Medical Summary | Continuity of Care Document ---
:1994 Author Organization [facility] Address [address] [place], [place] [id number] Phone Care Team Providers Name Role Phone [...] stop) Clinical Status Right upper quadrant pain Headache Decreased libido Urinary Frequency - Active Dysuria - Active Abdominal Pain, RLQ - Active Pelvic Pain - Active Ovarian Cyst - Active Procedures Procedure Date Office/outpatient visit,[facility] Results Test Name Date and Time Measure Units Reference Range Abnormal Flag Comments Unknown Advance Directives Directive Yes / No Effective Date File Name Unknown Encounters Encounter Practice Location Reason(s) Diagnoses Date Provider Care Team Description For Visit Members Office/outpati [facility] [place] Right upper Chandra Referring ent visit,est, [facility] quadrant -2017 [place]. 700 Provider: KEZIA Sharma Box pain Medical [place] 1522[facility] [place], [place] 120, 700 Medical [id number], [facility] tel:[phone] [place], [place] 120, 6790 [id number], [place], . [id number]. tel:+ tel: [phone] [facility] Chandra Referring [facility] -2016 [place]. 700 Provider: KEZIA CLINE [facility] 1522, Center , Marry Guevara [place], [place] 120, 700 [facility] [id number], [facility] tel:[phone] [place], [place] 120, 6790 [id number], [place], [place]. [id number]. tel:[phone] tel:[phone] [facility] Chandra Referring [facility] libido -2016 [place]. 700 Provider: KEZIA CLINE [facility] 1522, [place] , Marry Gue[place], [place], [place] 120, 700 Medical [id number], [facility] tel:[phone] [place], [facility] 120, 6790 [id number], [place], . [id number]. tel:[phone] tel:[phone] [facility] [place] [facility] -2009 Katheryn. KEZIA CLINE [facility] 1522, [facility] [place], [place], [place] , [id number], [place] 120, tel:[phone] [address], [id number], . tel:[phone] Family History Family Member Diagnosis Age At [...] Unknown Payers Payer name Insurance type Covered democrat ID Authorization(s) [facility] [place] BL [id number] Social History Type Description Quantity Date Captured Alcohol Use Details No Caffeine Use Details Unknown Tobacco Use Status Never smoked tobacco Smoking Status Never smoker Non-Smoking Tobacco Use : No Details Available : No Details Available Details Vital Signs Date / Height Weight BMI Pulse Blood Temperature Respiratory Body Head BMI Time: Rate Pressure Rate Surface Circumference percentile Area 188.70 83 131/82 lbs /min mm[Hg] 3:39 PM Chief Complaint And Reason For Visit Unknown Chief Complaint And Reason For Visit Reason For Referral Reason For Referral Unknown Plan Of Care Date Type Action Status Unknown. Date Type Problem Goal Intervention Status Start [...]
--- OUTSIDE RECORDS SUMMARY | 2018-03-04 16:58 | External Medical Summary | Continuity of Care Document ---
:1994 Author Organization [facility] Address [address] [place], [place] [phone] Phone Care Team Providers Name Role Phone [...] Effective Dates (start - stop) Clinical Status Syncope and collapse - 19 weeks gestation of - Right upper quadrant [...] Referring In Womens suprvsn of normal 4-201 [place]. 700 Provider: Elvis CLINE, first preg, 8 Medical [place] PO Box second Center Chandra R, 1522, [id number] weeks [place] Cha, gestation of 120, Medical [place], [facility] [id number], [place], [place] 120, [place] [id number] [place], tel:+ , [place]. [place], tel: [phone]. [id number] tel:[phone] Mitchell Vigil Encounter For Mar-1 Chandra Referring In Womens Ultrasound 4-201 [place]. 700 Provider: Elvis CLINE, Screening For 8 Medical [facility] Box [id number] Center Chandra R, 1522, weeks gestation [place] Cha, of 120, Medical [place] [place] [id number], [place], [place] 120, [place] [id number] [place], tel: , [place]. [place], tel: [phone]. [id number] tel:[phone] Mitchell Vigil Syncope and Mar-0 Chandra Referring In Womens [email or web address] weeks 6-201 [place]. 700 Provider: Elvis CLINE, gestation of 8 Medical [place] PO Box Center Chandra R, 1522, [place] Cha, 120, Medical [place] [facility] [id number], [place], [place] 120, [place] [id number] Mus[place], tel: , . [place], tel: [phone]. [id number] tel:[phone] Mitchell Vigil Encntr for Feb-2 Chandra Referring In Womens suprvsn of normal 3-201 [place]. 700 Provider: Health SON, first preg, 8 [facility] Chandra R, 1522, [id number] weeks [place] Cha, gestation of 120, Medical [place], [facility] [id number], [place], [place] 120, [place] [id number] [place], tel:+ , [place]. [place], tel: [phone]. [id number] tel:[phone] Mitchell Vigil Encntr for Feb-0 Chandra Referring In Womens suprvsn of normal 2-201 [place]. 700 Provider: Health SON, first preg, 8 [facility] Chandra R, 1522, [id number] weeks [place] Cha, gestation of 120, Medical [place], [facility] [id number], [place], [place] 120, [place] [id number] Mus[place], tel: , [place]. [place], tel: [phone]. [id number] tel:[phone] Mitchell Vig[place] Encntr screen for Lefty-0 Chandra Referring In Womens infections w sexl 4-201 [place]. 700 Provider: Elvis CLINE, mode of 8 [facility] transmissEncounte [place] Chandra R, 1522, r for screening [place] Cha, for oth 120, Medical [place], infec/parastc [facility] [id number], diseasesEncntr [place], [place] 120, [place] for suprvsn of [id number] Musa, tel: normal first , [place]. [place] preg, first tel: [phone]. trimesterEncounte [id number] tel:[phone] r for [phone] screening of mother9 weeks gestation of Mitchell Vigil Secondary Dec-1 Chandra Referring In Womens amenorrhea 5-201 [place]. 700 Provider: Elvis CLINE, 7 [facility] Chandra R, 1522, [place], 120, Medical [place], [facility] [id number], [place], [place] 120, [place] [id number] Mus[place], tel: , [place]. [place] tel: [phone]. [id number] tel:[phone] Mitchell Vigil Right upper Nov-2 Chandra Referring In Womens quadrant pain 7- [place]. 700 Provider: Health SON, 7 [facility] Chandra Cintron 1522, , [facility] Pat[place], 120, Medical [place] [facility] [id number], [place], [facility] 120, [place] [id number] [place], tel:+ , [place]. [place], tel: [phone]. [id number] tel:[phone] Mitchell Vigil Right upper Nov-2 Chandra In Womens quadrant pain 3-201 [place]. 700 Health [place], 7 [facility] 152Robert, , [facility] [place], 120, [place]Mus[place], [id number], [place], [place] [id number] tel: , [place]. tel: [phone] Mitchell Vigil Right upper Nov-2 Chandra Referring In Womens quadrant pain 2-201 [place]. 700 Provider: Health SON, 7 [facility] Chandra Cintron 1522, , [place] [address] [place], 120, Medical [place] [facility] [id number], [place], [facility] 120, [place] [id number] [place], tel: , [place]. [place], tel: [phone]. [id number] tel:[phone] Mitchell Vigil Headache Apr-1 Chandra Referring In Womens [place]. 700 Provider: Health SON, 6 [facility] Chandra Cintron 1522, , [facility] Patito Tuttle, 120, Medical [place] [facility] [id number], [place], [facility] 120, [place] [id number] Musa, tel: , [place]. [place], tel: [phone]. [id number] tel:[phone] Associates Mus[place] Decreased libido Feb-0 Chandra Referring In Womens [place]. 700 Provider: Health SON, 6 [facility] Chandra Cintron, 1522, , [place] Patito Tuttle, 120, Medical [place] [facility] [id number], [place], [facility] 120, [place] [id number] Musa, tel: , . [place] tel: [phone]. [id number] tel:[phone] Associates Musa Lisa In Womens 0-200 Katheryn. [facility], 9 700 PO [facility] 15[address], [address] Marry, [place], 120, [id number], [place], [place], tel:[phone] [phone] , [place]. tel: [phone] Family History Family Member Diagnosis Age At [...] name Insurance type Covered democrat ID Authorization(s) [facility] BL [id number] Social History Type Description Quantity Date Captured Alcohol Use Details No Caffeine Use Details Unknown Tobacco Use Status Unknown Smoking Status Never smoker Vital Signs Date / Height Weight BMI Pulse Blood Temperature Respiratory Body Head BMI Time: Rate Pressure Rate Surface Circumference percentile Area 195.40 28.8 136/77 2018 lbs 5 mm[Hg] 1:51 kg/m PM eter (2) Chief Complaint And Reason For Visit Unknown Chief Complaint And Reason For Visit Reason For Referral Reason For Referral Unknown Plan Of Care Date Type Action Status Appointment Niki Berman BOOKED Future Order: Radiology Order Complete OB Ultrasound > 14 Weeks Ordered ([id number]) Date Type Problem Goal Intervention Status Start [...]
--- OUTSIDE RECORDS SUMMARY | 2018-03-04 16:58 | External Medical Summary | Continuity of Care Document ---
:1994 Author Organization [facility] Address [address] [place], [place] [id number] Phone Care Team Providers Name Role Phone [...] Effective Dates (start - stop) Clinical Status Palpitations - Encntr for suprvsn of normal [...] Description For Visit Members Mitchell Vigil PalpitationsEncnt Nov- Chandra Referring In Womens r for suprvsn of [place]. 700 Provider: Elvis CLINE, normal first 8 Medical [place] PO Box preg, second Center Chandra R, 1522, [id number] weeks [place] Cha, gestation of 120, Medical [place], [facility] , [place], [place] 120, [place] [id number] Musa, tel: , [place]. [place], tel: [phone]. [id number] tel:[phone] Mitchell Vig[place] Encntr for Oct- Chandra Referring In Womens suprvsn of normal [place]. 700 Provider: Elvis CLINE, first preg, 8 Medical [place] PO Box second Center Chandra R, 1522, [id number] weeks [place] Cha, gestation of 120, Medical MD, [facility] [id number], [place], [place] 120, [place] [id number] Musa, tel: , [place]. [place], tel: [phone]. [id number] tel:[phone] Mitchell Vigil Encounter For Oct- Chandra Referring In Womens Ultrasound [place]. 700 Provider: Elvis CLINE, Screening For 8 Medical [place] PO Box [id number] Center Chandra R, 1522, weeks gestation [place] Cha, of 120, Medical MD, Musa [place] , [place], [place] 120, [place] [id number] Musa, tel: , . MD, tel: [phone]. [id number] tel:[phone] Mitchell Vigil Syncope and Mar-0 Chandra Referring In Womens [id number] weeks 6-201 [place]. 700 Provider: Elvis CLINE, gestation of 8 [facility] Center Chandra R, 1522, , [place], 120, Medical MD, [facility] [id number], [place], [place] 120, [place] [id number] Musa, tel: , . MD tel: [phone]. [id number] tel:[phone] Mitchell Vigil Encntr for Feb-2 Chandra Referring In Womens suprvsn of normal 3-201 [place]. 700 Provider: Elvis CLINE, first preg, 8 [facility] Center Chandra R, 1522, [id number] weeks [place] Cha, gestation of 120, Medical MD, [facility] [id number], [place], [place] 120, [place] [id number] Musa, tel: , [place]. [place], tel: [phone]. [id number] tel:[phone] Mitchell Vigil Encntr for Feb-0 Chandra Referring In Womens suprvsn of normal 2-201 [place]. 700 Provider: Elvis CLINE, first preg, 8 [facility] Center Chandra R, 1522, [id number] weeks [place] Cha, gestation of 120, Medical MD, [facility] [id number], MD, [place] 120, [place] [id number] Musa, tel: , [place]. MD tel: [phone]. [id number] tel:[phone] Mitchell Vig[place] Encntr screen for Lefty-0 Chandra Referring In Womens infections w sexl 4-201 [place]. 700 Provider: Elvis CLINE, mode of 8 [facility] transmissEncounte [place] Chandra R, 1522, r for screening [place] Cha, for oth 120, Medical MD, infec/parastc [facility] [id number], diseasesEncntr [place], [place] 120, [place] for suprvsn of [id number] Musa, tel: normal first , [place]. MD, preg, first tel: [phone]. trimesterEncounte [id number] tel: r for [phone] screening of mother9 weeks gestation of Associates Mus[place] Secondary Dec-1 Chandra Referring In Womens amenorrhea 5-201 [place]. 700 Provider: Elvis CLINE, 7 [facility] Box [place] Chandra Cintron, 1522, , [place] [facility] [place], 120, Medical MD, [facility] [id number], MD, [facility] 120, [place] [id number] Musa, tel: , [place]. [place], tel:[phone]. [id number] tel:[phone] Associates [place] Right upper Nov-2 Chandra Referring In Womens quadrant pain 7-201 [place]. 700 Provider: Health SON, 7 [facility] Box [place] Chandra Cintron, 1522, , Levy [facility] [place], 120, Medical M[facility] [id number], MD, [facility] 120, [place] [id number] Musa, tel: , [place]. MD tel:[phone]. [id number] tel:[phone] Associates [place] Right upper Nov-2 Chandra In Womens quadrant pain 3-201 [place]. 700 Health SON, 7 [facility] Box Center 1522, , [place], [facility], MDMusa, [id number], [place], [place] [id number] tel: , [place]. tel: [phone] Associates [place] Right upper Nov-2 Chandra Referring In Womens quadrant pain 2-201 [place]. 700 Provider: Health SON, 7 [facility] Chandra R, 1522, , [place] Patito Tuttle, 120, Medical MD, [facility] [id number], MD, [facility] 120, [place] [id number] Musa, tel: , [place]. MD tel: [phone]. [id number] tel:[phone] Associates [place] Headache Apr-1 Chandra Referring In Womens 9-201 [place]. 700 Provider: Health SON, 6 [facility] Chandra R, 1522, , [place] 700 [place], 120, Medical ERAN, [facility] [id number], MD, [facility] 120, [id number] Musa, tel: , . [place], tel: [phone]. [id number] tel:[phone] Associates Musa Decreased libido Fe- Chandra Referring In Womens 9-201 [place]. 700 Provider: Health [place], 6 Medical [place] PO Box [place] Chandra Cintron, 1522, , [place] 700 [place], 120, Medical [facility] [id number], MD, [facility] 120, [place] [id number] [place], tel: , . [place], tel: [phone]. [id number] tel:[phone] Associates Musa Feb-2 Lisa In Womens 0-200 Katheryn. Health [place], 9 700 [facility] 1522, [address] Marry, [facility], [facility], [id number], [place], ERAN, tel: [phone] , . tel: [phone] Family History Family Member Diagnosis Age At [...] name Insurance type Covered democrat ID Authorization(s) [facility] ERAN [id number] Social History Type Description Quantity Date Captured Alcohol Use Details No Caffeine Use Details Unknown Tobacco Use Status Unknown Smoking Status Never smoker Vital Signs Date / Height Weight BMI Pulse Blood Temperature Respiratory Body Head BMI Time: Rate Pressure Rate Surface Circumference percentile Area 202.40 29.8 135/79 2018 lbs 9 mm[Hg] 1:26 kg/m PM eter (2) Chief Complaint And Reason For Visit Unknown Chief Complaint And Reason For Visit Reason For Referral Reason For Referral Unknown Plan Of Care Date Type Action Status Appointment Niki Berman BOOKED Future Order: Radiology Order Complete OB Ultrasound > 14 Weeks Ordered ([id number]) Date Type Problem Goal Intervention Status Start [...]
--- OUTSIDE RECORDS SUMMARY | 2018-03-04 16:58 | External Medical Summary | Continuity of Care Document ---
:1995 Author Organization [facility] Address [address] [place], [place] [id number] Phone Care Team Providers Name Role Phone [...] Dates (start - stop) Clinical Status Encntr screen for infections w sexl - mode of transmiss Encounter for screening for oth - infec/parastc diseases Encntr for suprvsn of normal first - preg, first trimester Encounter for screening of - mother 9 weeks gestation of - Right upper quadrant pain Secondary amenorrhea Right upper quadrant pain - Right upper quadrant pain Headache Decreased libido Urinary Frequency - Active Dysuria - Active Abdominal Pain, RLQ - Active Pelvic Pain - Active Ovarian Cyst - Active Procedures Procedure Date Initial OB Visit No Charge - NEGOTIATIONS DIRECTOR Cult, bactr, khai colonycnt, urine Infct Antigen, HIV-1/2 Antigen/Antibodies 4th Gen Obstetric profile Venpnctr fngr/heel/ear stick routne Infct antign, chlamydia trac, ampl Neisseria Gonorrhoeae, Amplification Cult, bactr, ident isolate, urine Results Test Name Date and Time Measure Units Reference Range Abnormal Flag Comments Panel Description: OBSTETRIC PANEL WHITE BLOOD CELL 6.9 Thousand/uL 3.8-10.8 N COUNT 09:34:00 RED BLOOD CELL 4.20 Million/uL 3.80-5.10 N COUNT 09:34:00 HEMOGLOBIN 13.1 g/dL 11.7-15.5 N 09:34:00 HEMATOCRIT 38.2 % 35.0-45.0 N 09:34:00 MCV 91.0 fL 80.0-100.0 N 09:34:00 MCH 31.2 pg 27.0-33.0 N 09:34:00 MCHC 34.3 g/dL 32.0-36.0 N 09:34:00 RDW 12.6 % 11.0-15.0 N 09:34:00 PLATELET COUNT 201 Thousand/uL 140-400 N 09:34:00 MPV 10.8 fL 7.5-12.5 N 09:34:00 ABSOLUTE 5486 cells/uL 9140-4586 N NEUTROPHILS 09:34:00 ABSOLUTE 1180 cells/uL 850-3900 N LYMPHOCYTES 09:34:00 ABSOLUTE 179 cells/uL 200-950 L MONOCYTES 09:34:00 ABSOLUTE 28 cells/uL 15-500 N EOSINOPHILS 09:34:00 ABSOLUTE 28 cells/uL 0-200 N BASOPHILS 09:34:00 NEUTROPHILS 79.5 % N 09:34:00 LYMPHOCYTES 17.1 % N 09:34:00 MONOCYTES 2.6 % N 09:34:00 EOSINOPHILS 0.4 % N 09:34:00 BASOPHILS 0.4 % N 09:34:00 ANTIBODY SCREEN, NO ANTIBODIES N RBC W/REFL ID, 09:34:00 DETECTED Reference range TITER AND AG No antibodies detected This assay is a screening test for the detection of red blood cell antibodies. The test is not to be used for pretransfusion screening or for the medical management of an alloimmunized . ABO GROUP A 09:34:00 RH TYPE RH(D) 09:34:00 POSITIVE RPR (DX) W/REFL NON-REACTIVE NON-REACTIV N TITER AND 09:34:00 E CONFIRMATORY TESTING HEPATITIS B NON-REACTIVE NON-REACTIV N SURFACE ANTIGEN 09:34:00 E RUBELLA ANTIBODY 1.72 index N Index (IGG) 09:34:00 Interpretation ----- <0.90 Not consistent with Immunity 0.90-0.99 Equivocal > or=1.00 Consistent with Immunity The presence of rubella IgG antibody suggests immunization or past or current infection withrubella virus.Test performed at [place] [address]Ulsmhbt r: ROCKY KATE DO,MPH Panel Description: HIV 1/2 ANTIGEN/ANTIBODY,FOURTH GENERATION W/RFL HIV NON-REACTIVE NON-REACTIVE N HIV-1 antigen and HIV-1/HIV- 2 antibodies were AG/AB, 09:34:00 notdetected. There is no laboratory evidence of 4TH GEN HIVinfection. PLEASE NOTE: This information has been disclosed toyou from records whose confidentiality may beprotected by state law. If your state requires suchprotection, then the state law prohibits you frommaking any further disclosure of the informationwithout the specific written consent of the personto whom it pertains, or as otherwise permitted by law.A general authorization for the release of medical orother information is NOT sufficient for this purpose. For additional information please refer tohttp://education.Zapa/faq/EGZ249(This link is being provided for informational/educational purposes only.) The performance of this assay has not been clinicallyvalidated in patients less than 2 years old. REPORT COMMENT:FASTING:NOTest performed at [place] [address]Swxycpog: ROCKY KATE DO,MPH Panel Description: Bacteria identified in Urine by Culture CULTURE, URINE, SEE NOTE CULTURE, URINE, ROUTINE MICRO ROUTINE 09:35:00 NUMBER: [id number] TEST STATUS: FINAL SPECIMEN SOURCE: URINE, CLEAN CATCH SPECIMEN QUALITY: ADEQUATE RESULT: Multiple organisms present, each less than 10,000 CFU/mL. These organisms, commonly found on external and internal genitalia, are considered to be colonizers. No further testing performed.REPORT COMMENT:RFASTING:UNKNOWNTest performed at [facility] [address] [address]Pnbigpuh: ROCKY KATE DO,MPH Panel Description: CHLAMYDIA/N. GONORRHOEAE RNA, TMA CHLAMYDIA NOT DETECTED NOT DETECTED N TRACHOMATIS RNA, 09:44:00 TMA NEISSERIA NOT DETECTED NOT DETECTED N GONORRHOEAE RNA, 09:44:00 TMA [id number] SEE NOTE This test was 09:44:00 performed using the [employer] COMBO2 Assay([employer] The analytical performance characteristics of this assay, when used to test SurePath specimens havebeen determined by [facility]. REPORT COMMENT:FASTING:UNKNO WNTest performed at [facility] [address] [address]Nhhnjeaw: ROCKY KATE DO,MPH Advance Directives Directive Yes / No Effective Date File Name Unknown Encounters Encounter Practice Location Reason(s) Diagnoses Date Provider Care Team Description For Visit Members [facility] Simpson screen for Chandra Referring In Womens infections w sexl 4-201 [place]. [facility] Provider: [facility], [facility]andra [facility]intron, 1522, for screening for [place] [address] [place], [facility] infec/parastc 120, Medical [place], diseasesEncntr for [address] [id number], suprvsn of normal ERAN [place] 120, [place] first preg, first [id number] Musa, tel: [facility] , . [place], [id number] for tel: [phone]. screening of [id number] tel: mother9 weeks [id number] gestation of [facility] Secondary Dec-1 Hcandra Referring In Womens amenorrhea 5-201 [place]. 700 Provider: Health SON, 7 [facility] Chandra Cintron, 1522, , [place] Patito [place], 120, Medical Musa [place], [place] [id number], [place], [place] 120, [place] [id number] Musa, tel: , [place]. [place] tel: [phone]. [id number] tel:[phone] [facility] Right upper Nov-2 Chandra Referring In Womens quadrant pain 7-201 [place]. 700 Provider: Health SON, 7 [facility] Chandra Cintron, 1522, , [place], 120, Medical [facility] [id number], [place], [place] 120, [place] [id number] Musa, tel: , [place]. [place], tel: [phone]. [id number] tel:[phone] [facility] Right upper Nov-2 Chandra In Womens quadrant pain 3-201 [place]. 700 Health SON, 7 [facility] [address], , [facility] [place], 120, Musa BARILLAS, [id number], [place], [place] [id number] tel: , [place]. tel: [phone] [facility] Right upper Nov-2 Chandra Referring In Womens quadrant pain 2-201 [place]. 700 Provider: Elvis CLINE, 7 [facility] Chandra Cintron, 1522, , [place], 120, Medical [facility] [id number], [place], [place] [address], [place] [id number] Musa, tel: , [place]. [place], tel: [phone]. [id number] tel:[phone] [facility] Headache Apr-1 Chandra Referring In Womens 9- [place]. 700 Provider: Health SON, 6 [facility] Chandra Cintron, 1522, , [place], 120, Medical Musa BARILL[place], [place] [id number], [place], [place] [address], [place] [id number] Musa, tel: , [place]. [place], tel: [phone]. [id number] tel:[phone] [facility] Decreased libido Chandra Referring In Womens 9-201 [place]. 700 Provider: Health [place], 6 Medical [place] [address] Chandra Cintron [address], , [place] [address] [place], 120, Medical [place], [facility] [id number], [place], [place] [address], [place] [id number] Vigil, tel: , . [place], tel: [phone]. [id number] tel:[phone] [place] Vigil Feb-2 Lisa In Womens 0-200 [place]. [facility] [place], 9 700 [address] [facility] [address], [place] [address] Marry, [facility], 120, [id number], [place], [facility], tel: [phone] , . tel: [phone] Family History Family Member Diagnosis Age At [...] name Insurance type Covered democrat ID Authorization(s) KAHLIL BARILLAS BL [id number] Social History Type Description Quantity Date Captured Alcohol Use Details No Caffeine Use Details Unknown Tobacco Use Status Never smoked tobacco Smoking Status Never smoker Non-Smoking Tobacco Use : No Details Available : No Details Available Details Vital Signs Date / Height Weight BMI Pulse Blood Temperature Respiratory Body Head BMI Time: Rate Pressure Rate Surface Circumference percentile Area 189.70 28.0 124/2018 lbs 1 mm[Hg] 8:55 kg/m AM eter (2) Chief Complaint And [...]
[2018-03-04] MEDS ORDERED: MAG-AL + SIM ORAL LIQUID 30ml PO PRN (16:59)
[2018-03-04] MEDS ORDERED: METHYLERGONOVINE 0.2 MG/ML INJECTION IM PRN (16:59)
[2018-03-04] MEDS ORDERED: CALCIUM CARBONATE Chewable 500mg TABLET PO PRN (16:59)
[2018-03-04] MEDS ORDERED: LR 1,000 ML IV PRN (16:59)
[2018-03-04] MEDS ORDERED: ACETAMINOPHEN 500 MG TABLET PO PRN (16:59)
[2018-03-04] MEDS ORDERED: SALINE FLUSH 10ml SYRINGE IV PRN (16:59)
[2018-03-04] MEDS ORDERED: LIDOCAINE 1% (10mg/ml) 2mL INJ PF SDV ID PRN (16:59)
[2018-03-04] MEDS ORDERED: CARBOPROST 250 MCG/ML INJECTION IM PRN (16:59)
[2018-03-04] MEDS ORDERED: DiphenhydrAMINE 25 MG CAPSULE PO PRN (17:15)
[2018-03-04 17:27] VITALS: BMI 34.0
[2018-03-05] MEDS ORDERED: OXYTOCIN DRIP 30 UNIT/500 ML ML IV PRN (06:00)
[2018-03-05] MEDS ORDERED: D5LR 1,000 ML IV PRN (06:00)
[2018-03-05] MEDS ORDERED: DiphenhydrAMINE 50 MG/ML INJECTION IVP PRN (07:00)
[2018-03-05] MEDS ORDERED: ONDANSETRON 4 MG/2 ML INJECTION IVP PRN (07:00)
[2018-03-05] MEDS ORDERED: ROPIVACAINE 1% 10MG/ML INJ 200 MG, SUFentanil 50 MCG in NS 100 ML EPI PRN (07:00)
[2018-03-05] MEDS ORDERED: NALOXONE 0.4 MG/ML INJECTION IVP PRN (07:00)
--- NOTE | 2018-03-05 07:00 | Anesthesia Preoperative Report ---
Anesthesia Epidural/Spinal Rec - Date and Time Date: 03/05/18 Procedure: Labor Epidural Plan: Epidural - Vital Signs Vital Signs: Temperature 98.1 F 03/04/18 17:18 Pulse Rate 76 03/04/18 17:18 Respiratory Rate 16 03/04/18 17:18 Blood Pressure 134/83 03/04/18 17:18 Pulse Oximetry 99 03/04/18 17:18 /Para: P:0 - Medictaions & Allergies Inpatient Medications: Current Medications Acetaminophen (Tylenol) 500 - 1,000 mg PO Q4H PRN PRN Reason: Pain Al Hydroxide/Mg Hydroxide (Maalox Plus) 30 ml PO Q3H PRN PRN Reason: Indigestion Calcium Carbonate (Tums) 500 - 1,000 mg PO Q2H PRN PRN Reason: Indigestion Carboprost Tromethamine (Hemabate) 250 mcg IM O PRN PRN Reason: .Downtime Diphenhydramine HCl (Benadryl) 50 mg PO HS PRN PRN Reason: Sleep Last Admin: 03/05/18 01:53 Dose: 50 mg Lactated Ringer's (Lactated Ringers) 1,000 mls @ 999 mls/hr IV .Q1H1M PRN Dextrose/Lactated Ringer's (Dextrose 5%-Lactated Ringers) 1,000 mls @ 125 mls/ hr IV .Q8H PRN PRN Reason: Labor Oxytocin (Pitocin Drip) 30 unit in 500 mls @ 2 mls/hr IV .Q24H PRN; Protocol PRN Reason: Induction/Augmentation Lidocaine HCl (Xylocaine-Mpf 1% Vial) 0.2 mg ID O PRN PRN Reason: IV Start Methylergonovine Maleate (Methergine) 0.2 mg IM O PRN Misoprostol (Cytotec) 800 mcg TN ONCE PRN Sodium Chloride (Iv Flush) 10 - 80 ml IV PRN PRN PRN Reason: Flushing Terbutaline Sulfate (Brethine) 0.25 mg SQ PRN PRN Allergies/Adverse Reactions: Allergies Allergy/AdvReac Type Severity Reaction Status Date / Time No Known Allergies Allergy Unknown Verified 03/04/18 17:15 - Home Medications Home Medications: Home Medications Medication Instructions Recorded Confirmed Type Pnv No.95/Ferrous Fum/Folic AC 1 each PO DAILY 08/31/17 08/31/17 History [ Tablet] - Medical History Cardiovascular: Reports: Other (Palpitations) Neuro/Musculoskeletal: Reports: Syncope Other History: Reports: Now - Surgical History GI Surgery/Treatments: Reports: Appendectomy Reproductive Surgery/Treatment: DENIES: Section Anesthesia Reactions: None Hx Family Anesthesia Reaction: No History of Motion Sickness: No - Social History Smoking Status: Never smoker Second Hand Exposure: No Substance Use Type: does not use Alcohol Intake Frequency: does not drink Hx Chewing Tobacco Use: No - Pertinent Findings Lab Data: CBC and BMP 03/04/18 17:07 EKG Rhythm: Normal Sinus Rhythm - Physical Exam Respiratory Exam: lungs clear Cardiovascular Exam: regular rate and rhythm, no murmur - Airway Assessment Mallampati Score: II TMD: 3 Fingerbreadths Neck Extension: good Overall Assessment: no airway concerns - ASA ASA Score: 2 - Discussion Discussion: Discussed risks/options/alternatives of anesthesia and questions answered. Patient consents. Nursing pain assessment noted. Anesthesia Discussion: spouse Attestation Statement: Prior to the delivery of any anesthetic medication, I examined the patient, developed the plan, obtained the patient's consent and discussed the risk and benefits of the procedure with the patient/guardian.
[2018-03-05] MEDS ORDERED: ACETAMINOPHEN 500 MG TABLET PO PRN (14:03)
[2018-03-05] MEDS ORDERED: OXYTOCIN DRIP 30 UNIT/500 ML ML IV SCH (14:03)
[2018-03-05] MEDS ORDERED: MAG-AL + SIM ORAL LIQUID 30ml PO PRN (14:03)
[2018-03-05] MEDS ORDERED: DiphenhydrAMINE 25 MG CAPSULE PO PRN (14:03)
[2018-03-05] MEDS ORDERED: CALCIUM CARBONATE Chewable 500mg TABLET PO PRN (14:03)
[2018-03-05] MEDS ORDERED: HYDROCODONE/APAP 5mg/325mg TABLET PO PRN (14:03)
[2018-03-05] MEDS ORDERED: HYDROCORTISONE 2.5% CREAM 30gm RECTALLY PRN (14:03)
[2018-03-05] MEDS: IBUPROFEN 800 MG TABLET PO PRN ×2 (14:07→22:00)
--- NOTE | 2018-03-05 15:05 | Labor and Delivery Note ---
DATE OF DELIVERY 03/05/2018 DIAGNOSES 1. 22-year-old G1, P0 at 40.1 weeks gestational age. 2. Cervidil cervical ripening. 3. Pitocin induction of labor for postdates. 4. Epidural anesthesia. 5. Artificial rupture of membranes. 6. Spontaneous vaginal delivery. 7. Nuchal cord x1 - delivered through. 8. First-degree perineal laceration and right vulvar laceration - repaired. 9. Female infant 9/9 Apgars 3208 grams (Marylu Milton). DESCRIPTION This is a patient of mine who was brought in for postdates induction. Her cervix was initially 1-2 cm the night before when we placed Cervidil. Pitocin reached a maximum of 20 milliunits a minute the next day. Epidural block was placed and then artificial rupture of membranes occurred and we were still 2 cm so I placed an IUPM posteriorly and it showed adequate contractions. So we gave more time and she made it to complete dilation around noon. We began pushing around 12:30 and at 12:47 we had a spontaneous vaginal delivery from the OA position. was bulb suctioned after delivery of the head and then again after delivery of the body. Cord was allowed to drain for a minute and a half before it was doubly clamped and cut and the infant's father cut the cord. The initially went to the mother's abdomen. The placenta delivered spontaneously and was intact. There was a first-degree laceration and a right vulvar laceration that were both repaired using 3-0 chromic. EBL was 350. Maternal blood type is A+, rubella is immune and GBS was negative. At the time of dictation, mother and are doing well. [facility]ENTER[facility]
--- NOTE | 2018-03-05 20:59 | Anesthesia Postoperative Note ---
- Date and Time Date: 03/05/18 Time: 20:59 - Status Patient Participated in Evaluation: Patient Participated in Person Vital Signs: Temperature 98.6 F 03/05/18 16:50 Pulse Rate 94 03/05/18 16:50 Respiratory Rate 18 03/05/18 16:50 Blood Pressure 117/74 03/05/18 16:50 Pulse Oximetry 98 03/05/18 16:02 Respiratory Function: Airway Patent Mental Status: Alert and Oriented Pain Intensity: 3 Hydration: Taking PO Fluids Nausea/Vomiting: None Complications During Recover: None Apparent - Follow-Up Instructions Instructions: Per Surgeon
[2018-03-06 00:35] VITALS: RESP 16
[2018-03-06] MEDS ORDERED: DOCUSATE CALCIUM 240 MG CAPSULE PO SCH (09:00)
[2018-03-06] MEDS: IBUPROFEN 800 MG TABLET PO PRN ×2 (10:38→18:29)
--- NOTE | 2018-03-06 12:17 | Progress Note ---
OB PP Progress Note Free Text - Date Date: 03/06/18 - Progress Note Progress Note: vss af no c/o cont current care
[2018-03-06 17:48] VITALS: BP 130/86; PULSE 84; TEMP 98.1; O2SAT 98
== END 2018-03-06 20:15 | disposition home or self-care (01) | DRG 775 ==
LOC: MC 16:50
PROVIDERS: ADMIT Obstetrics & Gynecology; ATTEND Obstetrics & Gynecology